=== PATIENT | male | born 1975 ===

== ENCOUNTER 2018-04-12 13:11 | Emergency (ER) | payer BC ==
[2018-04-12 13:40] VITALS: O2SAT 99
[2018-04-12] MEDS ORDERED: Amoxicillin-Clav 875-125 mg Tab PO STA (14:20)
--- NOTE | 2018-04-12 15:06 | ED PDOC ---
HPI: Dental Pain/Injury Time Seen by Provider: 04/12/18 14:03 Chief Complaint (Nursing): Dental Pain Chief Complaint (Provider): Toothache History Per: Patient History/Exam Limitations: no limitations Onset/Duration Of Symptoms: Days (x4) Current Symptoms Are (Timing): Still Present Quality: "Pain" Additional Complaint(s): 42 y/o male presents to the ED with a toothache. Patient states symptoms began 4 days ago and have worsened 2 days ago. He reports right lower dental pain that radiates to his right ear. Patient states the pain worsens with eating. He has been taking Ibuprofen for the pain with no relief, he took 400 mg last night at 2 AM. He is unable to see the dentist until the 22 of April prompting his ED visit today. He has no other medical complaints. PMD: none provided Past Medical History Reviewed: Historical Data, Nursing Documentation, Vital Signs Vital Signs: Last Vital Signs Temp 97.4 F L 04/12/18 13:38 Pulse 108 H 04/12/18 13:38 Resp 18 04/12/18 13:38 BP 133/87 04/12/18 13:38 Pulse Ox 99 04/12/18 13:38 - Medical History PMH: No Chronic Diseases - Surgical History Surgical History: No Surg Hx - Family History Family History: States: No Known Family Hx - Social History Current smoker - smoking cessation education provided: No (uses a vap) Ex-Smoker (has not smoked in the last 12 months): No Alcohol: None Drugs: Denies - Home Medications Home Medications: Ambulatory Orders Medication Instructions Recorded Acetaminophen [Acetaminophen 8 650 mg PO Q8 #24 tablet.er 04/12/18 Hour] Amoxicillin/Clavulanate [Augmentin 1 tab PO BID #14 tab 04/12/18 875 MG-125 MG] Ibuprofen [Motrin Tab] 800 mg PO Q8 #24 tab 04/12/18 - Allergies Allergies/Adverse Reactions: Allergies Allergy/AdvReac Type Severity Reaction Status Date / Time No Known Allergies Allergy Verified 04/12/18 13:38 Review of Systems ROS Statement: Except As Marked, All Systems Reviewed And Found Negative ENT: Positive for: Other (right lower dental pain radiating to right ear) Physical Exam - Reviewed Nursing Documentation Reviewed: Yes Vital Signs Reviewed: Yes - Physical Exam Comments: GENERAL APPEARANCE: Patient is awake, alert, oriented x 3, in no acute distress. Resting comfortably. SKIN: Warm, dry; (-) cyanosis. ENMT: (+) right lower premolar and first molar tenderness, filling in place to the right premolar with surrounding gum erythema, poor dentition throughout (-) swelling (-) oral lesions Pharynx: is clear and uvula is midline. (-) tongue elevation, (-) exudate. Airway patent: (-) stridor. (-) Submandibular or submental neck swelling (-) pseudomembranes NECK: (-) tenderness, (-) crepitus. CHEST AND RESPIRATORY: (-) rhonchi, (-) rales, (-) wheezes, (-) pleural rub; breath sounds equal bilaterally. HEART AND CARDIOVASCULAR: (-) irregularity; (-) murmur, (-) gallop. - ECG O2 Sat by Pulse Oximetry: 99 (RA) Medical Decision Making Medical Decision Making: Time: 13:38 Impression: Toothache Plan: * Tylenol 650 mg PO * Amoxicillin 1 tab PO * Toradol 60 mg IM * Re-evaluation 1550 Repeat HR: 95 On re-evaluation, patient reports improvement of symptoms. On exam, patient remains AAOx3, in no acute distress. On exam, neck is supple, lungs CTA, cardiac RRR, neuro exam shows no focal findings. VSS, stable for discharge. Diagnostic results d/w the patient in great detail. Dx of toothache, probable dental infection d/w the patient. Based on history, exam and diagnostic results plan will be for discharge and outpatient dental follow up as planned on 04/22/18. Advised to follow up with primary care physician in 1-2 days without fail. Advised to take medication as prescribed. Return to the emergency room at any time for any new or worsening symptoms. Patient states he fully agrees with and understands discharge instructions. States that he agrees with the plan and disposition. Verbalized and repeated discharge instructions and plan. I have given the patient opportunity to ask any additional questions. Scribe Attestation: Documented by Brayden Fernandez acting as a scribe Rocio Wang PA-C. MD [place] Attestation: All medical record entries made by the Scribe were at my direction and personally dictated by me. I have reviewed the chart and agree that the record accurately reflects my personal performance of the history, physical exam, medical decision making, and the department course for this patient. I have also personally directed, reviewed, and agree with the discharge instructions and disposition. Disposition - Clinical Impression Clinical Impression: Toothache, Dental infection - Patient ED Disposition Is Patient to be Admitted: No Counseled Patient/Family Regarding: Studies Performed, Diagnosis, Need For Followup, Rx Given - Disposition Disposition: Routine/Home Disposition Time: 15:53 Additional Instructions: FOLLOW UP WITH DENTIST PLANNED. FOLLOW UP WITH PMD FOR FURTHER PAIN MANAGEMENT IF NEEDED. RETURN TO ED WITH ANY NEW OR WORSENING SYMPTOMS. Prescriptions: Acetaminophen [Acetaminophen 8 Hour] 650 mg PO Q8 #24 tablet.er Amoxicillin/Clavulanate [Augmentin 875 MG-125 MG] 1 tab PO BID #14 tab Ibuprofen [Motrin Tab] 800 mg PO Q8 #24 tab Instructions: Dental Pain (DC), Tooth Abscess (DC), Dental Pain Forms: [facility] (Chinese) Print Language: HUNGARIAN - POA Present On Arrival: None
[2018-04-12 15:55] VITALS: BP 129/85; PULSE 95; RESP 16; TEMP 98.8
== END 2018-04-12 16:09 | disposition home or self-care (01) ==
LOC: H.ER 13:11
DX: K04.7 Periapical abscess without sinus (principal)
CPT/HCPCS: 96372; 99283; J1885

== ENCOUNTER 2019-02-28 22:51 | Emergency (ER) | payer BC ==
[2019-02-28 22:53] VITALS: BMI 40.8
[2019-02-28 22:54] VITALS: BP 112/93; PULSE 90; RESP 16; TEMP 98.7; O2SAT 98
--- NOTE | 2019-03-01 00:43 | ED PDOC ---
HPI: Dental Pain/Injury Time Seen by Provider: 02/28/19 23:16 Chief Complaint (Nursing): Dental Pain Chief Complaint (Provider): Dental Pain History Per: Patient History/Exam Limitations: no limitations Onset/Duration Of Symptoms: Days (x 1 week) Current Symptoms Are (Timing): Still Present Quality: "Pain" Additional Complaint(s): 43 year old male presents to the ED for evaluation of a tooth ache for the last week. Patient reports that the upper back molars are causing the most pain. The patient states that he was supposed to follow up with his dentist last week, but was unable to. He denies swelling or a fever. Patient states he is very hungry and is requesting food. Denies homicidal and suicidal ideation. PMD: Adryan Adams Past Medical History Reviewed: Historical Data, Nursing Documentation, Vital Signs Vital Signs: Last Vital Signs Temp 98.7 F 02/28/19 22:53 Pulse 90 02/28/19 22:53 Resp 16 02/28/19 22:53 BP 112/93 H 02/28/19 22:53 Pulse Ox 98 02/28/19 22:53 Primary Care Provider: Adryan Adams - Medical History PMH: Hypercholesterolemia Denies: Chronic Kidney Disease - Surgical History Surgical History: No Surg Hx - Family History Family History: States: Unknown Family Hx - Home Medications Home Medications: Ambulatory Orders Medication Instructions Recorded Icosapent Ethyl [Vascepa] 1 gm PO DAILY 07/07/18 metFORMIN [glucOPHAGE] 500 mg PO BID 07/07/18 - Allergies Allergies/Adverse Reactions: Allergies Allergy/AdvReac Type Severity Reaction Status Date / Time No Known Allergies Allergy Verified 02/28/19 22:52 Review of Systems ROS Statement: Except As Marked, All Systems Reviewed And Found Negative Constitutional: Negative for: Fever ENT: Positive for: Mouth Pain (toothache, worse at upper back molars). Negative for: Mouth Swelling, Throat Swelling Physical Exam - Reviewed Nursing Documentation Reviewed: Yes Vital Signs Reviewed: Yes - Physical Exam Appears: Positive for: No Acute Distress Head Exam: Positive for: ATRAUMATIC, NORMAL INSPECTION, NORMOCEPHALIC Skin: Positive for: Normal Color, Warm, Dry ENT: Positive for: Other (poor denititon of upper molars; left with tooth decay and break down) Cardiovascular/Chest: Positive for: Regular Rate, Rhythm. Negative for: Murmur Respiratory: Positive for: Normal Breath Sounds Neurological/Psych: Positive for: Awake, Alert, Normal Tone, Oriented (x 3). Negative for: Motor/Sensory Deficits - ECG O2 Sat by Pulse Oximetry: 98 (RA) Pulse Ox Interpretation: Normal Medical Decision Making Medical Decision Makin:02 Impression: tooth decay Recommended supportive treatment and urgent follow up with dentist Orders: --Motrin 600 mg PO --Lidocaine 15 mg PO Scribe Attestation: Documented by Tanvi Sosa, acting as a scribe Charles Lambert MD Provider Scribe Attestation: All medical record entries made by the Scribe were at my direction and personally dictated by me. I have reviewed the chart and agree that the record accurately reflects my personal performance of the history, physical exam, medical decision making, and the department course for this patient. I have also personally directed, reviewed, and agree with the discharge instructions and disposition. Disposition - Clinical Impression Clinical Impression: Dental caries - Patient ED Disposition Is Patient to be Admitted: No - Disposition Referrals: [facility] [Outside] Disposition: Discharged/Transfer to Law Enforcement Disposition Time: 00:25 Condition: STABLE Additional Instructions: Medically and psychiatrically cleared for incarceration. Instructions: Tooth Decay, Adult Forms: [employer] (Turkish)
== END 2019-03-01 00:20 ==
LOC: H.ER 22:51
DX: K02.9 Dental caries, unspecified (principal); E78.00 Pure hypercholesterolemia, unspecified